=== PATIENT | female | born 1940 | race Caucasian/White ===

== ENCOUNTER 2020-05-25 10:22 | Emergency (ER) | payer OTHER ==
--- NOTE | 2020-05-25 11:12 | ER ---
Nurse's Notes [facility] Name: Liliane Reid Age: 80 yrs Sex: Female : 1940 Arrival Date: 05/25/2020 Time: 10:27 Bed 14 Private MD: Diagnosis: Patient's unintentional underdosing of medication regimen for other reason-medication refill;Contusion of left great toe with damage to nail-old subungal hematoma;Essential (primary) hypertension Presentation: 05/25 10:30 Chief complaint: Patient states: Left big toe bruise. States, "I must have bumped it on ca1 something maybe a week or two ago, and it's not healing". Coronavirus screen: Proceed with normal triage. Patient denies a cough. Patient denies shortness of breath or difficulty breathing. Patient denies measured and/or subjective temperature greater than 100.4F prior to today's visit. Patient denies travel on a cruise ship or to a country the [facility] currently lists as an affected area. Patient denies contact with known and/or suspected case of COVID-19. Ebola Screen: Patient negative for fever greater than or equal to 101.5 degrees Fahrenheit, and additional compatible Ebola Virus Disease symptoms Patient denies exposure to infectious person. Patient denies travel to an Ebola-affected area in the 21 days before illness onset. No symptoms or risks identified at this time. Initial Sepsis Screen: Does the patient meet any 2 criteria? No. Patient's initial sepsis screen is negative. Does the patient have a suspected source of infection? No. Patient's initial sepsis screen is negative. Risk Assessment: Do you want to hurt yourself or someone else? Patient reports no desire to harm self or others. Onset of symptoms was May 25, 2020. 10:30 Method Of Arrival: Ambulatory ca1 10:30 Acuity: FORREST 4 ca1 Historical: - Allergies: 10:33 No Known Allergies; ca1 - Home Meds: 10:33 lisinopril 10 mg Oral tab 1 tab once daily [Active]; ca1 - PMHx: 10:33 Hypertension; ca1 - PSHx: 10:33 None; ca1 - Immunization history:: Adult Immunizations up to date. - Social history:: Smoking status: Patient denies any tobacco usage or history of. - Family history:: not pertinent. Screenin:00 Abuse screen: Denies threats or abuse. Denies injuries from another. Nutritional jl7 screening: No deficits noted. Tuberculosis screening: No symptoms or risk factors identified. Fall Risk None identified. Assessment: 11:00 General: Appears in no apparent distress. uncomfortable, Behavior is calm, cooperative, jl7 appropriate for age. Pain: Denies pain. Neuro: Level of Consciousness is awake, alert, obeys commands, Oriented to person, place, time, situation. Cardiovascular: Patient's skin is warm and dry. Respiratory: Airway is patent Respiratory effort is even, unlabored, Respiratory pattern is regular, symmetrical. Derm: Skin is pink, warm \\T\\ dry. Injury Description: Bruise sustained to Left first toenail. Vital Signs: 10:30 BP 153 / 87; Pulse 70; Resp 15 S; Temp 97.6(TE); Pulse Ox 100% on R/A; Weight 63.5 kg ca1 (R); Height 5 ft. 2 in. (157.48 cm) (R); Pain 0/10; 10:30 Body Mass Index 25.61 (63.50 kg, 157.48 cm) ca1 ED Course: 10:27 Patient arrived in ED. ag5 10:32 Triage completed. ca1 10:33 Arm band placed on right wrist. ca1 10:45 Marvin Combs MD is Attending Physician. [facility] 11:00 Patient has correct armband on for positive identification. Bed in low position. Call jl7 light in reach. Side rails up X 1. 11:06 Naty Blackburn, HUONG is Primary Nurse. jl7 11:10 No provider procedures requiring assistance completed. Patient did not have IV access jl7 during this emergency room visit. 11:13 Jasiel Islas DO is Referral Physician. [facility] 11:15 Michael Flores DPM is Referral Physician. [facility] Administered Medications: 11:05 Drug: Neosporin Ointment 1 application {Note: administered by Dr. Combs.} Route: jl7 Topical; Site: affected area; 11:22 Follow up: Response: No adverse reaction jl7 Outcome: 11:12 Discharge ordered by . [facility] 11:21 Discharged to home ambulatory. jl7 11:21 Condition: stable 11:21 Discharge instructions given to patient, Instructed on discharge instructions, follow up and referral plans. medication usage, Demonstrated understanding of instructions, follow-up care, medications, Prescriptions given X 1. 11:22 Patient left the ED. jl7 Signatures: Marvin Combs MD MD cha Leal, Jahala RN RN jl7 Lanie Albarado RN RN ca1 Thony, Erica [facility]
--- NOTE | 2020-05-25 11:12 | EDPHYS ---
Physician Documentation [facility] Name: Liliane Reid Age: 80 yrs Sex: Female : 1940 Arrival Date: 05/25/2020 Time: 10:27 Bed 14 Private MD: [place] Physician Marvin Combs HPI: 05/25 11:04 This 80 yrs old Female presents to ER via Ambulatory with complaints of Toe michael Pain. 11:04 The patient presents with pain, that is chronic. The complaints affect the left foot, michael Left first toenail. Context: The problem was sustained at home, resulted from stubbing toe on corner of solid object. Onset: The symptoms/episode began/occurred 4 week(s) ago. Modifying factors: The symptoms are alleviated by nothing, the symptoms are aggravated by nothing. Associated signs and symptoms: The patient has no apparent associated signs or symptoms. Severity of symptoms: At their worst the symptoms were very mild, in the emergency department the symptoms are unchanged. The patient has not experienced similar symptoms in the past. Historical: - Allergies: 10:33 No Known Allergies; ca1 - Home Meds: 10:33 lisinopril 10 mg Oral tab 1 tab once daily [Active]; ca1 - PMHx: 10:33 Hypertension; ca1 - PSHx: 10:33 None; ca1 - Immunization history:: Adult Immunizations up to date. - Social history:: Smoking status: Patient denies any tobacco usage or history of. - Family history:: not pertinent. ROS: 11:04 Constitutional: Negative for fever, chills, and weight loss, Eyes: Negative for injury, michael pain, redness, and discharge, ENT: Negative for injury, pain, and discharge, Neck: Negative for injury, pain, and swelling, Cardiovascular: Negative for chest pain, palpitations, and edema, Respiratory: Negative for shortness of breath, cough, wheezing, and pleuritic chest pain, Abdomen/GI: Negative for abdominal pain, nausea, vomiting, diarrhea, and constipation, Back: Negative for injury and pain, : Negative for injury, bleeding, discharge, and swelling, Skin: Negative for injury, rash, and discoloration, Neuro: Negative for headache, weakness, numbness, tingling, and seizure, Psych: Negative for depression, anxiety, suicide ideation, homicidal ideation, and hallucinations, Allergy/Immunology: Negative for hives, rash, and allergies, Endocrine: Negative for neck swelling, polydipsia, polyuria, polyphagia, and marked weight changes, Hematologic/Lymphatic: Negative for swollen nodes, abnormal bleeding, and unusual bruising. 11:04 MS/extremity: Positive for pain, tenderness, of the left first toe and Left first toenail. Exam: 11:04 Constitutional: This is a well developed, well nourished patient who is awake, alert, michael and in no acute distress. Head/Face: Normocephalic, atraumatic. Eyes: Pupils equal round and reactive to light, extra-ocular motions intact. Lids and lashes normal. Conjunctiva and sclera are non-icteric and not injected. Cornea within normal limits. Periorbital areas with no swelling, redness, or edema. ENT: Nares patent. No nasal discharge, no septal abnormalities noted. Tympanic membranes are normal and external auditory canals are clear. Oropharynx with no redness, swelling, or masses, exudates, or evidence of obstruction, uvula midline. Mucous membranes moist. Neck: Trachea midline, no thyromegaly or masses palpated, and no cervical lymphadenopathy. Supple, full range of motion without nuchal rigidity, or vertebral point tenderness. No Meningismus. Chest/axilla: Normal chest wall appearance and motion. Nontender with no deformity. No lesions are appreciated. Cardiovascular: Regular rate and rhythm with a normal S1 and S2. No gallops, murmurs, or rubs. Normal PMI, no JVD. No pulse deficits. Respiratory: Lungs have equal breath sounds bilaterally, clear to auscultation and percussion. No rales, rhonchi or wheezes noted. No increased work of breathing, no retractions or nasal flaring. Abdomen/GI: Soft, non-tender, with normal bowel sounds. No distension or tympany. No guarding or rebound. No evidence of tenderness throughout. Back: No spinal tenderness. No costovertebral tenderness. Full range of motion. Skin: Warm, dry with normal turgor. Normal color with no rashes, no lesions, and no evidence of cellulitis. Neuro: Awake and alert, GCS 15, oriented to person, place, time, and situation. Cranial nerves II-XII grossly intact. Motor strength 5/5 in all extremities. Sensory grossly intact. Cerebellar exam normal. Normal gait. Psych: Awake, alert, with orientation to person, place and time. Behavior, mood, and affect are within normal limits. 11:04 Musculoskeletal/extremity: ROM: full active range of motion, full passive range of motion, Circulation is intact in all extremities. Sensation intact. Compartment Syndrome exam of affected extremity: is normal. DVT Exam: No signs of deep vein thrombosis. no pain, no swelling, no tenderness, negative Homans' sign noted on exam, no appreciated bluish discoloration, no erythema, no increased warmth, Nails: Subungual hematoma, of the medial aspect of left wrist and Left first toenail, old sugungal hematoma. Vital Signs: 10:30 BP 153 / 87; Pulse 70; Resp 15 S; Temp 97.6(TE); Pulse Ox 100% on R/A; Weight 63.5 kg ca1 (R); Height 5 ft. 2 in. (157.48 cm) (R); Pain 0/10; 10:30 Body Mass Index 25.61 (63.50 kg, 157.48 cm) ca1 MDM: 10:46 Patient medically screened. [facility] 11:08 Data reviewed: vital signs, nurses notes. [facility] 11:08 Differential diagnosis: sprain. Data interpreted: foot setter: not applicable for michael this patient encounter. rate is 70 beats/min, Pulse oximetry: on room air is 100 %. Counseling: I had a detailed discussion with the patient and/or guardian regarding: the historical points, exam findings, and any diagnostic results supporting the discharge/admit diagnosis. ED course: ask to refill lisinopril 10 qdaily, will do. 05/25 11:02 Order name: Wound Care; Complete Time: 11:08 [facility] Administered Medications: 11:05 Drug: Neosporin Ointment 1 application {Note: administered by Dr. Combs.} Route: jl7 Topical; Site: affected area; 11:22 Follow up: Response: No adverse reaction jl7 Disposition: 05/25/20 11:12 Discharged to Home. Impression: Patient's unintentional underdosing of medication regimen for other reason - medication refill, Contusion of left great toe with damage to nail - old subungal hematoma, Essential (primary) hypertension. - Condition is Stable. - Discharge Instructions: Hypertension, Medicine Refill at the Emergency Department, Subungual Hematoma, Hypertension, [id number], How to Take Your Blood Pressure, [id number], Subungual Hematoma, [id number], Managing Your Hypertension. - Prescriptions for Lisinopril 10 mg Oral Tablet - take 1 tablet by ORAL route once daily; 20 tablet. - Medication Reconciliation Form, Thank You Letter, Antibiotic Education, Prescription Opioid Use form. - Follow up: Private Physician; When: 2 - 3 days; Reason: Recheck today's complaints, Continuance of care, Re-evaluation by your physician. Follow up: Jasiel Islas DO; When: 2 - 3 days; Reason: Recheck today's complaints, Re-evaluation by your physician. Follow up: Michael Flores DPM; When: 2 - 3 days; Reason: Recheck today's complaints, Re-evaluation by your physician. - Problem is new. - Symptoms have improved. Signatures: Marvin Combs MD MD cha Leal, Jahala, RN RN jl7 Lanie Albarado RN RN ca1 Corrections: (The following items were deleted from the chart) 11:14 11:12 05/25/2020 11:12 Discharged to Home. Impression: Patient's unintentional michael underdosing of medication regimen for other reason - medication refill; Contusion of left great toe with damage to nail - old subungal hematoma. Condition is Stable. Forms are Medication Reconciliation Form, Thank You Letter, Antibiotic Education, Prescription Opioid Use. Follow up: Private Physician; When: 2 - 3 days; Reason: Recheck today's complaints, Continuance of care, Re-evaluation by your physician. Problem is new. Symptoms have improved. michael 11:15 11:14 05/25/2020 11:12 Discharged to Home. Impression: Patient's unintentional michael underdosing of medication regimen for other reason - medication refill; Contusion of left great toe with damage to nail - old subungal hematoma; Essential (primary) hypertension. Condition is Stable. Discharge Instructions: Medicine Refill at the Emergency Department, Subungual Hematoma, Subungual Hematoma, [id number]. Prescriptions for Lisinopril 10 mg Oral Tablet - take 1 tablet by ORAL route once daily; 20 tablet. and Forms are Medication Reconciliation Form, Thank You Letter, Antibiotic Education, Prescription Opioid Use. Follow up: Private Physician; When: 2 - 3 days; Reason: Recheck today's complaints, Continuance of care, Re-evaluation by your physician. Follow up: Jasiel Islas; When: 2 - 3 days; Reason: Recheck today's complaints, Re-evaluation by your physician. Problem is new. Symptoms have improved. michael 11:22 11:15 05/25/2020 11:12 Discharged to Home. Impression: Patient's unintentional jl7 underdosing of medication regimen for other reason - medication refill; Contusion of left great toe with damage to nail - old subungal hematoma; Essential (primary) hypertension. Condition is Stable. Discharge Instructions: Medicine Refill at the Emergency Department, Subungual Hematoma, Subungual Hematoma, [id number], Hypertension, Hypertension, [id number], How to Take Your Blood Pressure, [id number], Managing Your Hypertension. Prescriptions for Lisinopril 10 mg Oral Tablet - take 1 tablet by ORAL route once daily; 20 tablet. and Forms are Medication Reconciliation Form, Thank You Letter, Antibiotic Education, Prescription Opioid Use. Follow up: Private Physician; When: 2 - 3 days; Reason: Recheck today's complaints, Continuance of care, Re-evaluation by your physician. Follow up: Jasiel Islas; When: 2 - 3 days; Reason: Recheck today's complaints, Re-evaluation by your physician. Follow up: Dr. Michael Flores; When: 2 - 3 days; Reason: Recheck today's complaints, Re-evaluation by your physician. Problem is new. Symptoms have improved. michael
[2020-05-25 11:27] VITALS: BP 153/87; TEMP 97.6; O2SAT 100
== END 2020-05-25 11:22 | disposition home or self-care (01) ==
LOC: ER 10:22
DX: S90.212A Contusion of left great toe with damage to nail, initial encounter (principal); W22.8XXA Striking against or struck by other objects, initial encounter; Y93.9 Activity, unspecified; Y92.9 Unspecified place or not applicable; I10 Essential (primary) hypertension; Z91.138 Patient's unintentional underdosing of medication regimen for other reason; Z76.0 Encounter for issue of repeat prescription
CPT/HCPCS: 99283